=== PATIENT | male | born 1975 | race Caucasian/White ===

== ENCOUNTER 2019-10-06 00:50 | Inpatient (IN) | payer OTHER ==
[2019-10-06] MEDS ORDERED: NALOXONE 0.4 MG/ML 1 ML VIAL IV PRN (00:55)
[2019-10-06] MEDS ORDERED: ONDANSETRON 4 MG/2 ML VIAL IVP PRN (01:06)
[2019-10-06 01:17] LABS: Basophils # (A) 0.1 k/uL (0-0.2); Basophils % (A) 0 %; Eosinophils # (A) 0.1 k/uL (0-0.7); Eosinophils % (A) 1 %; HCT 39.6 % (39.0-53.0); HGB 13.5 gm/dL (13.0-17.5); Lymphocytes # (A) 2.1 k/uL (1.0-4.8); Lymphocytes % (A) 18 %; MCH 30.9 pg (25.0-35.0); MCHC 34.1 g/dL (31.0-37.0); MCV 90.8 fL (80.0-100.0); Mean Platelet Volume 7.8; Monocytes # (A) 0.9 k/uL (0-1.0); Monocytes % (A) 7 %; Neutrophils # (A) 8.8 k/uL (1.3-7.7); Neutrophils % (A) 72 %; Platelet Count 311 k/uL (150-450); RBC 4.36 m/uL (4.30-5.90); RDW 12.7 % (11.5-15.5); WBC 12.2 k/uL (3.8-10.6)
[2019-10-06 01:33] LABS: INR 0.9 (<1.2)
[2019-10-06 01:34] LABS: ALT 30 U/L (4-49); AST 28 U/L (17-59); African American GFR (CKD) >90 (>60 ml/min/1.73 sqM); Albumin 4.1 g/dL (3.5-5.0); Alkaline Phosphatase 76 U/L (38-126); Anion Gap 11 mmol/L; Blood Urea Nitrogen 21 mg/dL (9-20); C Reactive Protein 51.1 mg/L (<10.0); Calcium 9.9 mg/dL (8.4-10.2); Carbon Dioxide 22 mmol/L (22-30); Chloride 105 mmol/L (98-107); Glucose 113 mg/dL (74-99); Non-African American GFR(CKD) >90 (>60 ml/min/1.73 sqM); Potassium 4.2 mmol/L (3.5-5.1); Sodium 138 mmol/L (137-145); Total Bilirubin 0.6 mg/dL (0.2-1.3); Total Protein 7.3 g/dL (6.3-8.2); Uric Acid 4.3 mg/dL (3.5-8.5)
[2019-10-06 01:41] LABS: Partial Thromboplastin Time 20.3 sec (22.0-30.0)
[2019-10-06] MEDS: SODIUM CHLORIDE 0.9% 1,000 ML IV SCH ×3 (01:41→19:42)
[2019-10-06] MEDS: HYDROmorphone 1 MG/ML 1 ML SYRINGE IVP PRN ×4 (01:41→13:24)
[2019-10-06] MEDS: MORPHINE SULFATE 4 MG/ML SYRINGE IV PRN ×5 (02:46→20:25)
--- NOTE | 2019-10-06 02:50 | ED ---
General Adult HPI - General Chief complaint: Extremity Problem,Nontraumatic Stated complaint: Wrist Pain Time Seen by Provider: 10/06/19 00:53 Source: patient, EMS Mode of arrival: EMS Limitations: no limitations - History of Present Illness Initial comments: Jessica is a previously healthy 44-year-old male who presents to the ER as a transfer from an outside hospital for further management of likely septic left wrist. Patient reports he began having pain in the wrist on September 15. He is followed with his primary care physician in [facility], [place]. Pain has acutely worsened over the past few days. He was again evaluated outpatient. He is noted to have an elevated d-dimer and a Doppler of the arm was ordered which revealed no DVTs. However noticed worsening pain and thigh care at an emergency department where previous labs were reviewed and decision made order a computed tomography scan which revealed a loculated fluid collection in the wrist concerning for likely septic arthritis. Patient no history of arthritis and history of injuries to history of open skin injuries. No recent surgeries anywhere in the body.. No history of gout - Related Data Allergies Allergy/AdvReac Type Severity Reaction Status Date / Time No Known Allergies Allergy Verified 10/06/19 01:19 Review of Systems ROS Statement: Those systems with pertinent positive or pertinent negative responses have been documented in the HPI. ROS Other: All systems not noted in ROS Statement are negative. Past Medical History Past Medical History: No Reported History History of Any Multi-Drug Resistant Organisms: None Reported Past Surgical History: No Surgical Hx Reported Past Psychological History: No Psychological Hx Reported Smoking Status: Never smoker Past Alcohol Use History: None Reported, Occasional Past Drug Use History: None Reported General Exam - General Exam Comments Initial Comments: Physical Exam GENERAL: Patient is well-developed and well-nourished. Patient is nontoxic and well-hydrated and is in no distress. HENT: Normocephalic, Atraumatic. EYES: PERRL, EOMI PULMONARY: Unlabored respirations. CARDIOVASCULAR: RRR Warm and well perfused extremities ABDOMEN: Non-distended SKIN: No rashes or bruising : Deferred NEUROLOGIC: Alert and oriented Normal speech Normal gait MUSCULOSKELETAL: left wrist, red, hot, decreased ROM secondary to pain PSYCHIATRIC: No SI/HI Limitations: no limitations Course Vital Signs 10/06/19 00:53 Temperature 98.8 F Pulse Rate 82 Respiratory 18 Rate Blood Pressure 123/66 O2 Sat by Pulse 98 Oximetry Medical Decision Making - Medical Decision Making Patient care was discussed with the transferring physician, patient with apparent septic arthritis identified on computed tomography scan. Patient does have worsening leukocytosis on labs outpatient. Patient was accepted in transfer. Upon arrival patient with pain in the left wrist, overlying erythema and swelling decreased range of motion this is concerning for possible septic arthritis versus gout however given the CT findings of a loculated collection likely septic arthritis. Patient was treated with vancomycin and ceftriaxone prior to arrival. Blood cultures were not obtained at the previous hospital. Repeat labs including blood cultures were obtained here. Patient will be admitted to medicine on-call for phone consult as well as infectious disease on consult. Patient was made nothing by mouth in anticipation of possible orthopedic procedure. - Lab Data Result diagrams: 10/06/19 01:02 10/06/19 01:02 Disposition Clinical Impression: Septic joint of left hand Disposition: ADMITTED IP TO THIS HOSP Condition: Serious Is patient prescribed a controlled substance at d/c from ED?: No
[2019-10-06] MEDS ORDERED: VANCOMYCIN IV PER PHARMACY 1 EACH MISC MISCELLANE PRN (13:42)
[2019-10-06] MEDS: KETOROLAC 30 MG/ML 1 ML VIAL IVP SCH ×2 (15:25→19:39)
--- NOTE | 2019-10-06 15:33 | P.CNOR ---
<Marge Erickson Concha - Last Filed: 10/06/19 15:13> History of Present Illness - [facility] Consult date: 10/06/19 Consult reason: joint pain (Left wrist pain rule out septic arthritis) History of present illness: The patient is a 44-year-old male with a medical history of hypothyroidism, hyperlipidemia, and depression, who presented to the emergency department upon transfer from [facility] last night with left wrist and hand pain and swelling. He states he noticed increased pain in the left wrist approximately 3 weeks ago and went to an urgent care where he was started on oral steroids. He denies any injury or overuse of the hand and wrist. The pain and swelling continued to worsen and he went to the emergency department at [facility]. X-rays, ultrasound, and CT were performed of the left arm and possible septic arthritis was suspected. He was then transferred to [facility] for further evaluation by orthopedic hand surgery. The patient was subsequently admitted to the hospital for further evaluation and pain control. Patient states that his pain is quite severe and is requiring [id number] morphine. The patient denies fever, chills, rigors, and ill feeling since the wrist pain started. White blood cell count in the emergency department yesterday was 12.2, ESR 71, C-reactive protein 51.1, and lactic acid 2.5. The patient previously had vancomycin and another antibiotic at [facility] but has not had antibiotics since. He states he has not had significant improvement since being in the hospital but states the swelling has improved slightly. Review of Systems Constitutional: Denies chills, Denies fatigue, Denies fever Cardiovascular: Denies chest pain, Denies shortness of breath Respiratory: Denies cough Gastrointestinal: Denies abdominal pain, Denies diarrhea, Denies nausea, Denies vomiting Musculoskeletal: left: wrist pain, wrist stiffness, wrist swelling Past Medical History Past Medical History: No Reported History History of Any Multi-Drug Resistant Organisms: None Reported Past Surgical History: No Surgical Hx Reported Past Psychological History: No Psychological Hx Reported Smoking Status: Never smoker Past Alcohol Use History: None Reported, Occasional Past Drug Use History: None Reported Medications and Allergies Home Medications Medication Instructions Recorded Confirmed Type Atorvastatin [Lipitor] 20 mg PO DAILY 10/06/19 10/06/19 History Cholecalciferol [Vitamin D3 (25 3,000 unit PO DAILY 10/06/19 10/06/19 History Mcg = 1000 Iu)] HYDROcodone/APAP 7.5-325MG [Cochran 1 tab PO Q6HR 10/06/19 10/06/19 History 7.5-325] Levothyroxine Sodium [Euthyrox] 88 mcg PO MOWEFR 10/06/19 10/06/19 History Levothyroxine Sodium [Synthroid] 100 mcg PO SUTUTHSA 10/06/19 10/06/19 History Sertraline [Zoloft] 50 mg PO Q48H 10/06/19 10/06/19 History Sertraline [Zoloft] 100 mg PO Q48H 10/06/19 10/06/19 History Allergies Allergy/AdvReac Type Severity Reaction Status Date / Time No Known Allergies Allergy Verified 10/06/19 01:19 Physical Examination The patient is a 44-year-old male who is in no acute distress. He is alert and oriented 3. Exam of the left wrist and hand reveal diffuse swelling to the dorsal aspect of the wrist and hand. There is no proximal red streaking or edema in the forearm. No open wounds or erythema is noted to the wrist or hand. Active and passive range of motion of the fingers are present with mild pain and stiffness. There is active and passive range of motion of the wrist with moderate pain which is limited. There is pain to palpation to the radiocarpal joint and the extensor tendons. No neurological deficits. Circulatory status is intact. Radial pulse strong and capillary refill less than 2 seconds. Results - Labs Labs: Abnormal Lab Results - Last 24 Hours (Table) 10/06/19 10/06/19 10/06/19 Range/Units 01:02 01:02 01:02 WBC 12.2 H (3.8-10.6) k/uL Neutrophils # 8.8 H (1.3-7.7) k/uL ESR (0-15) mm/hr APTT (22.0-30.0) sec BUN 21 H (9-20) mg/dL Glucose 113 H (74-99) mg/dL Plasma Lactic Acid Gallo 2.5 H* (0.7-2.0) mmol/L C-Reactive Protein 51.1 H (<10.0) mg/L 10/06/19 10/06/19 Range/Units 01:02 01:32 WBC (3.8-10.6) k/uL Neutrophils # (1.3-7.7) k/uL ESR 71 H (0-15) mm/hr APTT 20.3 L (22.0-30.0) sec BUN (9-20) mg/dL Glucose (74-99) mg/dL Plasma Lactic Acid Gallo (0.7-2.0) mmol/L C-Reactive Protein (<10.0) mg/L H & H 10/06/19 Range/Units 01:02 Hgb 13.5 (13.0-17.5) gm/dL Hct 39.6 (39.0-53.0) % Coagulation 10/06/19 Range/Units 01:02 INR 0.9 (<1.2) Result Diagrams: 10/06/19 01:02 10/06/19 01:02 - Diagnostic results Wrist/Hand CT: image reviewed (Outside films reviews. Nonspecific fluid collection present. ) Assessment and Plan (1) Left wrist pain Current Visit: Yes Status: Acute Code(s): M25.532 - PAIN IN LEFT WRIST SNOMED Code(s): 22845776 Plan: The clinical and CT findings were discussed with the patient and the patient's family. The case was discussed at length with Dr. Peralta. According to the patient's exam, we clinically doubt septic arthritis at this time. We will start vancomycin and Rocephin as a precaution. We will await infectious disease recommendations. The patient is encouraged to continue range of motion of the fingers actively and passively. Continue pain control. Continue either ice and/or heat. Patient is able to eat today but will be NPO at midnight tonight. It was discussed that the patient fails to improve, a incision and drainage may be needed for further exploration. We will hold off on joint aspiration as well due to the potential to introduce an infection into the joint. We will continue to follow patient closely make further recommendations depending on the patient's course. <Naun Peralta - Last Filed: 10/07/19 22:27> Results - Labs Labs: Abnormal Lab Results - Last 24 Hours (Table) 10/07/19 10/07/19 Range/Units 08:24 08:24 RBC 3.96 L (4.30-5.90) m/uL Hgb 12.2 L (13.0-17.5) gm/dL Hct 37.1 L (39.0-53.0) % Chloride 108 H (98-107) mmol/L BUN 21 H (9-20) mg/dL Microbiology - Last 24 Hours (Table) 10/06/19 01:02 Blood Culture - Preliminary Blood No Growth after 24 hours H & H 10/06/19 10/07/19 Range/Units 01:02 08:24 Hgb 13.5 12.2 L (13.0-17.5) gm/dL Hct 39.6 37.1 L (39.0-53.0) % Coagulation 10/06/19 Range/Units 01:02 INR 0.9 (<1.2) Result Diagrams: 10/07/19 08:24 10/07/19 08:24 Assessment and Plan Plan: Discussed with OLGA Erickson and agree with above. Patient was subsequently seen and examined by myself as well. S: The patient denies previous history of similar episodes. No known history of gout or other inflammatory arthropathy. He feels that the redness and swelling have improved but he still having difficulty moving his fingers. O: Diffuse edema across the dorsum of the hand and wrist, extending into the fingers. No subcutaneous crepitus. No erythema. No significant calor. Minimal tenderness to palpation over the carpus but mild tenderness over the dorsal hand. Almost no pain with passive wrist motion and minimal actively. The patient localizes the pain more to the dorsal hand. He is able to perform active and passive digital flexion and extension. Most of the pain is at the end ranges of motion, particularly in flexion. A: 1. Left hand pain and swelling - likely extensor tenosynovitis P: I discussed the clinical findings in detail with the patient and his family. His exam does not suggest a septic joint. Low suspicion for deep abscess. Based on the appearance and function of the hand, extensor tenosynovitis is more likely. This may be inflammatory/aseptic and not necessarily infectious. We discussed treatment options in detail, including continued observation, symptomatic treatment with warm or cold compresses, IV antibiotics and surgical debridement. He feels that there has been some improvement. I would recommend starting e mpiric IV antibiotics and observing this overnight. If this is clinically worsens, we may consider surgical debridement. Questions were invited and answered. He expressed understanding and was in agreement with this plan. Naun Peralta D.O. [facility]
[2019-10-06] MEDS: VANCOMYCIN 1,500 MG in SODIUM CHLORIDE 0.9% 250 ML IVPB SCH ×2 (16:14→21:01)
--- NOTE | 2019-10-06 17:56 | P.HPIM ---
History of Present Illness Patient is a 44-year-old male came in with the swelling of the left the wrist and hand. Patient pain started 3 weeks ago although it started swelling up quite a bit with severe pain about a week ago patient was diagnosed with osteo- arthritis and was started on oral steroids without any significant improvement patient was sent in here with concerns of septic arthritis CT of the hand was performed which was read as septic arthritis. Artery surgery evaluated the patient I examined the left hand the patient's active and passive movements are not restricted significantly little bit restricted because of pain. Patient has diffuse swelling possibly of septic arthritis is low area did white blood cell count is 12,200 with ESR of 71 C-reactive protein of 51.1 patient was started on vancomycin and ceftriaxone by orthopedic surgery Review of Systems REVIEW OF SYSTEMS: CONSTITUTIONAL: No fever, no malaise, no fatigue. HEENT: No recent visual problems or hearing problems. Denied any sore throat. CARDIOVASCULAR: No chest pain, orthopnea, PND, no palpitations, no syncope. PULMONARY: No shortness of breath, no cough, no hemoptysis. GASTROINTESTINAL: No diarrhea, no nausea, no vomiting, no abdominal pain. NEUROLOGICAL: No headaches, no weakness, no numbness. HEMATOLOGICAL: Denies any bleeding or petechiae. GENITOURINARY: Denies any burning micturition, frequency, or urgency. MUSCULOSKELETAL/RHEUMATOLOGICAL: As mentioned in HPI ENDOCRINE: Denies any polyuria or polydipsia. The rest of the 14-point review of systems is negative. Past Medical History Past Medical History: No Reported History History of Any Multi-Drug Resistant Organisms: None Reported Past Surgical History: No Surgical Hx Reported Past Psychological History: No Psychological Hx Reported Smoking Status: Never smoker Past Alcohol Use History: None Reported, Occasional Past Drug Use History: None Reported Medications and Allergies Home Medications Medication Instructions Recorded Confirmed Type Atorvastatin [Lipitor] 20 mg PO DAILY 10/06/19 10/06/19 History Cholecalciferol [Vitamin D3 (25 3,000 unit PO DAILY 10/06/19 10/06/19 History Mcg = 1000 Iu)] HYDROcodone/APAP 7.5-325MG [Page 1 tab PO Q6HR 10/06/19 10/06/19 History 7.5-325] Levothyroxine Sodium [Euthyrox] 88 mcg PO MOWEFR 10/06/19 10/06/19 History Levothyroxine Sodium [Synthroid] 100 mcg PO SUTUTHSA 10/06/19 10/06/19 History Sertraline [Zoloft] 50 mg PO Q48H 10/06/19 10/06/19 History Sertraline [Zoloft] 100 mg PO Q48H 10/06/19 10/06/19 History Allergies Allergy/AdvReac Type Severity Reaction Status Date / Time No Known Allergies Allergy Verified 10/06/19 01:19 Physical Exam Vitals: Vital Signs Temp Pulse Pulse Resp BP BP Pulse Ox 10/06/19 13:11 98.2 F 64 17 114/68 99 10/06/19 07:00 97.9 F 80 18 135/72 98 10/06/19 02:25 98.8 F 66 20 114/66 97 10/06/19 00:53 98.8 F 82 18 123/66 98 Intake and Output 10/06/19 10/06/19 10/06/19 06:59 14:59 22:59 Intake Total 800 Balance 800 Intake: Intake, IV Titration 800 Amount Sodium Chloride 0.9% 1, 800 000 ml @ 100 mls/hr IV . Q10H REPLACED BY [facility] Rx#:[id number] Other: # Voids 1 Weight 84.368 kg PHYSICAL EXAMINATION: GENERAL: The patient is alert and oriented x3, not in any acute distress. Well developed, well nourished. HEENT: Pupils are round and equally reacting to light. EOMI. No scleral icterus. No conjunctival pallor. Normocephalic, atraumatic. No pharyngeal erythema. No thyromegaly. CARDIOVASCULAR: S1 and S2 present. No murmurs, rubs, or gallops. PULMONARY: Chest is clear to auscultation, no wheezing or crackles. ABDOMEN: Soft, nontender, nondistended, normoactive bowel sounds. No palpable organomegaly. MUSCULOSKELETAL: No joint swelling or deformity. EXTREMITIES: No cyanosis, clubbing, or pedal edema. Patient has diffuse swelling of the left hand there is some limitation of passive and active range of motion because of pain and some stiffness no local is of temperature no obvious joint swelling. NEUROLOGICAL: Gross neurological examination did not reveal any focal deficits. SKIN: No rashes. Results CBC & Chem 7: 10/06/19 01:02 12/27/19 01:02 Labs: Abnormal Lab Results - Last 24 Hours (Table) 10/06/19 10/06/19 10/06/19 Range/Units 01:02 01:02 01:02 WBC 12.2 H (3.8-10.6) k/uL Neutrophils # 8.8 H (1.3-7.7) k/uL ESR (0-15) mm/hr APTT (22.0-30.0) sec BUN 21 H (9-20) mg/dL Glucose 113 H (74-99) mg/dL Plasma Lactic Acid Gallo 2.5 H* (0.7-2.0) mmol/L C-Reactive Protein 51.1 H (<10.0) mg/L 10/06/19 10/06/19 Range/Units 01:02 01:32 WBC (3.8-10.6) k/uL Neutrophils # (1.3-7.7) k/uL ESR 71 H (0-15) mm/hr APTT 20.3 L (22.0-30.0) sec BUN (9-20) mg/dL Glucose (74-99) mg/dL Plasma Lactic Acid Gallo (0.7-2.0) mmol/L C-Reactive Protein (<10.0) mg/L Thrombosis Risk Factor Assmnt - Choose All That Apply Any of the Below Risk Factors Present?: Yes Each Factor Represents 1 point: Age 41-60 years, Obesity (BMI >25) Other Risk Factors: No Other congenital or acquired thrombophilia - If yes, enter type in comment: No Thrombosis Risk Factor Assessment Total Risk Factor Score: 2 Thrombosis Risk Factor Assessment Level: Low Risk Assessment and Plan Plan: 1 left hand swelling and pain: Probably appears to be severe tendinitis low possibility of septic arthritis the patient will be continued on antibiotics for now continue with ice and heat packing patient was started on Toradol. Orthopedic Surgery will try and do incision and drainage if his symptoms doesn't improve. -Hypothyroidism -Hyperlipidemia -Depression For above-mentioned chronic medical problems patient will be resumed and continued on appropriate home medications
[2019-10-06] MEDS ORDERED: SERTRALINE 50 MG TAB PO SCH (18:00)
[2019-10-06] MEDS ORDERED: LEVOTHYROXINE 88 MCG TAB PO SCH (18:00)
[2019-10-06 23:30] VITALS: RESP 18
[2019-10-07] MEDS: KETOROLAC 30 MG/ML 1 ML VIAL IVP SCH ×4 (00:41→17:01)
[2019-10-07] MEDS: VANCOMYCIN 1,500 MG in SODIUM CHLORIDE 0.9% 250 ML IVPB SCH ×2 (05:47→14:49)
[2019-10-07] MEDS: LEVOTHYROXINE 100 MCG TAB PO SCH (05:52)
[2019-10-07] MEDS: MORPHINE SULFATE 4 MG/ML SYRINGE IV PRN ×4 (07:44→22:38)
[2019-10-07] MEDS: ATORVASTATIN 20 MG TAB PO SCH (07:44)
[2019-10-07] MEDS: SODIUM CHLORIDE 0.9% 1,000 ML IV SCH (07:44)
[2019-10-07 08:42] LABS: HCT 37.1 % (39.0-53.0); HGB 12.2 gm/dL (13.0-17.5); MCH 30.7 pg (25.0-35.0); MCHC 32.8 g/dL (31.0-37.0); MCV 93.7 fL (80.0-100.0); Mean Platelet Volume 7.5; Platelet Count 290 k/uL (150-450); RBC 3.96 m/uL (4.30-5.90); RDW 12.8 % (11.5-15.5); WBC 7.5 k/uL (3.8-10.6)
[2019-10-07 09:01] LABS: African American GFR (CKD) >90 (>60 ml/min/1.73 sqM); Anion Gap 8 mmol/L; Blood Urea Nitrogen 21 mg/dL (9-20); Calcium 9.4 mg/dL (8.4-10.2); Carbon Dioxide 22 mmol/L (22-30); Chloride 108 mmol/L (98-107); Glucose 87 mg/dL (74-99); Non-African American GFR(CKD) >90 (>60 ml/min/1.73 sqM); Potassium 4.6 mmol/L (3.5-5.1); Sodium 138 mmol/L (137-145)
--- NOTE | 2019-10-07 12:32 | P.PN ---
<Olga Painter - Last Filed: 10/07/19 12:30> Subjective Progress Note Date: 10/07/19 The patient is a 44-year-old male with a medical history of hypothyroidism, hyperlipidemia, and depression, who presented to the emergency department upon transfer from [facility] 10/05/19 with left wrist and hand pain and s welling. He states he noticed increased pain in the left wrist approximately 3 weeks ago and went to an urgent care where he was started on oral steroids. He denies any injury or overuse of the hand and wrist. The pain and swelling continued to worsen and he went to the emergency department at [facility]. X-rays, ultrasound, and CT were performed of the left arm and possible septic arthritis was suspected. He was then transferred to [facility] for further evaluation by orthopedic hand surgery. White blood cell count in the emergency department 10/05/19 was 12.2, ESR 71, C-reactive protein 51.1, and lactic acid 2.5. The patient was subsequently admitted to the hospital under the care of internal medicine with a consult placed to orthopedic surgery for further evaluation. The patient is currently receiving IV vancomycin and Rocephin. Patient is examined bedside this morning. He states his pain in the left wrist has drastically improved since yesterday. He also has noticed a decrease in swelling. He states he has increased range of motion of the wrist and fingers today. He is otherwise feeling well today. He denies chest pain, shortness breath, nausea, vomiting, fevers, chills, feelings of generalized malaise. Vital signs stable. Objective - Vital Signs Vital signs: Vital Signs Temp 97.8 F 10/07/19 05:00 Pulse 60 10/07/19 05:00 Resp 18 10/07/19 05:00 BP 111/56 10/07/19 05:00 Pulse Ox 94 L 10/07/19 05:00 Intake & Output 10/06/19 10/07/19 10/07/19 18:59 06:59 18:59 Intake Total 980 0 Balance 980 0 Intake: Intake, IV Titration 800 Amount Sodium Chloride 0.9% 1, 800 000 ml @ 100 mls/hr IV . Q10H [facility] Rx#:[id number] Oral 180 0 Other: # Voids 2 # Bowel Movements 0 - Exam Patient is examined bedside. On examination, the patient is lying in bed in no apparent distress. He is alert and oriented 3. Family member is bedside. On examination of the left wrist, there is diffuse swelling to the dorsal aspect of the wrist and hand. There is no significant erythema or proximal red streaking of the hand, wrist, or forearm. There are no open wounds or lacerations to the hand or wrist. There is no pain with active or passive range of motion of the fingers, or wrist. There is minimal pain to palpation of the radial carpal joint and extensor tendons. Motor and sensory function are intact of the left upper extremity. Radial pulse palpable, brisk capillary refill distally. - Labs CBC & Chem 7: 10/07/19 08:24 10/07/19 08:24 Labs: Abnormal Lab Results - Last 24 Hours (Table) 10/07/19 10/07/19 Range/Units 08:24 08:24 RBC 3.96 L (4.30-5.90) m/uL Hgb 12.2 L (13.0-17.5) gm/dL Hct 37.1 L (39.0-53.0) % Chloride 108 H (98-107) mmol/L BUN 21 H (9-20) mg/dL Microbiology - Last 24 Hours (Table) 10/06/19 01:02 Blood Culture - Preliminary Blood No Growth after 24 hours Assessment and Plan Assessment: Left wrist pain, septic arthritis versus gout. Plan: Discussed the clinical findings with the patient and the patient's family. Case was also discussed with Dr. Peralta. The patient's clinical exam does not appear to be consistent with septic arthritis at this time, although we will continue IV antibiotics until we receive recommendations from infectious disease. Continue Toradol for pain control and possible gout. Patient was encouraged to continue range of motion of the fingers. Continue ice and/or heat to the left wrist and hand. We will continue to monitor the patient's clinical course closely and make recommendations as needed. Patient discussed with Dr. Peralta. <Naun Peralta - Last Filed: 10/07/19 22:41> Objective - Vital Signs Vital signs: Vital Signs Temp 97.6 F 10/07/19 17:57 Pulse 64 10/07/19 17:57 Resp 18 10/07/19 17:57 BP 124/72 10/07/19 17:57 Pulse Ox 95 12/28/19 17:57 Intake & Output 10/07/19 10/07/19 10/08/19 06:59 18:59 06:59 Intake Total 0 300 Balance 0 300 Intake: Oral 0 300 Other: # Voids 2 2 # Bowel Movements 0 - Labs CBC & Chem 7: 10/07/19 08:24 10/07/19 08:24 Labs: Abnormal Lab Results - Last 24 Hours (Table) 10/07/19 10/07/19 Range/Units 08:24 08:24 RBC 3.96 L (4.30-5.90) m/uL Hgb 12.2 L (13.0-17.5) gm/dL Hct 37.1 L (39.0-53.0) % Chloride 108 H (98-107) mmol/L BUN 21 H (9-20) mg/dL Microbiology - Last 24 Hours (Table) 10/06/19 01:02 Blood Culture - Preliminary Blood No Growth after 24 hours Assessment and Plan Plan: Reviewed and agree with above (amendments/corrections noted below). Discussed with LETY Painter. The patient was subsequently seen and examined by me as well. S: The patient feels that the hand and wrist are showing continued improvement. After working on his range of motion, it did become more sore. Overall, he feels it is better than when he first arrived. O: The edema in the hand appears marginally improved. The dorsal subcutaneous tissues are diffusely edematous and boggy but there is no discrete fluid carleen ection. No tenderness over the extensor tendons. No pain with mid range active or passive digital flexion and extension. Pain is most intense with the end range of active flexion. No pain with active or passive wrist motion. ~3 cm [id number] deficit of all the fingers. A: Left hand & wrist pain and swelling with extensor tenosynovitis P: I discussed the clinical findings in detail. The patient is showing continued clinical improvement. The appearance of his hand and wrist is more consistent with an inflammatory tenosynovitis. The edema across the hand is diffuse and there is no focal fluid collection that requires operative debridement, especially given his present physical exam. We discussed the risks associated with surgery, including wound healing problems, adhesions and contractures. I would not recommend surgery at this time. Continue elevation. May consider alternating warm and cold compresses. Demonstrated several stretches and range of motion exercises he may perform frequently. I will continue to monitor him closely. If his clinical improvement stalls, or if he worsens, we may revisit the idea of surgical debridement. He expressed understanding and was in agreement to continue as outlined above. Naun Peralta D.O. [facility]
[2019-10-07] MEDS ORDERED: VANCOMYCIN TROUGH DUE 1 EACH MISC MISCELLANE ONE (13:00)
[2019-10-07] MEDS ORDERED: SERTRALINE 100 MG TAB PO SCH (18:00)
--- NOTE | 2019-10-07 20:02 | PN ---
PROGRESS NOTE DATE OF SERVICE: 10/07/2019. This 44-year-old gentleman who was admitted with significant pain and swelling of the left wrist is being closely monitored at this time. The orthopedics is following the patient closely for possible septic arthritis versus gout. Orthopedic surgery is planning pain medications and conservative line of management and IV antibiotics. Infectious disease evaluation also has been sought at this time. The uric acid is only 4.3. Vancomycin level is noted. PAST MEDICAL HISTORY: Reviewed. REVIEW OF SYSTEMS: Cardiovascular system: No angina or palpitations. RESPIRATORY: As mentioned earlier. GASTROINTESTINAL: As mentioned earlier. : No dysuria or retention. CENTRAL NERVOUS SYSTEM: No numbness or weakness. CURRENT MEDICATIONS: 1. Lipitor. 2. Toradol. 3. Synthroid. 4. Morphine sulfate. 5. Zofran. 6. Zoloft. PHYSICAL EXAM: Patient is alert, oriented x3. Pulse is 80. Blood pressure 124/72, respirations 18, temperature 98.5, pulse ox 98% on room air. HEENT: Conjunctivae normal. NECK: No JVD. CARDIOVASCULAR: S1, S2 muffled. RESPIRATIONS: Breath sounds diminished in the bases. No rhonchi. No crackles. ABDOMEN: Soft, nontender. LEGS: No edema. No swelling. CENTRAL NERVOUS SYSTEM: No focal deficits. Examination of the left wrist: Significant pain and swelling of the left wrist joint and whole of the hand also on the left side present. LABS: WBC 7.2, hemoglobin 12.2. Sodium 130, potassium 4.6. ASSESSMENT: 1. Left wrist pain and swelling with possible septic arthritis. 2. Increased WBC. 3. Elevated ESR. 4. Anemia, normocytic anemia, of undetermined etiology. RECOMMENDATIONS AND DISCUSSION: This 44-year-old gentleman who presented with multiple complex medical issues, we will monitor the patient closely, continue the current medications, management and symptomatic treatment. Otherwise, at this time, I recommend continue with broad- spectrum IV antibiotics. Currently the patient is on vancomycin. We will continue to monitor with Infectious Disease. Resume the home medications. Guarded prognosis because of the multiple complex medical issues. Further recommendations to follow. MMODL / IJN: [id number] /
[2019-10-07] MEDS: HEPARIN SODIUM,PORCINE 5,000 UNIT/ML 1 ML VIAL SQ SCH (21:56)
--- NOTE | 2019-10-07 22:56 | P.CONS ---
History of Present Illness - Reason for Consult Consult date: 10/07/19 ? left wrist septic arthritis Requesting physician: Minnie Chery - Chief Complaint left wrist pain and swelling since september 15 - History of Present Illness Patient is a 44-year male who has been transferred from [facility] for management of possible her left wrist septic arthritis apparently the patient still having a problem with his left wrist mostly with the pain and swelling around September 15, 2019 patient did not have any fever at that time or any significant redness patient subsequently has been evaluated in the outpatient setting by his primary care physician and has been treated with a steroids however patient mention no significant improvement with the same subsequently the patient did have blood work done and noticed to have elevated d-dimer and the patient had Doppler of the left lower extremity done to rule out DVT and a CT scan was ordered however the patient was with insurance authorization in the meantime the patient left wrist swelling got worse and it become more painful pain described more predominantly thrombocytopenia (with pain more at movement of the wrist joint there was very minimal swelling redness though no open wound or any drainage patient continues to deny any fever or chills currently debated have a CT of the wrist done at the [facility] which was read for possible fluid collection at the wrist on daily and consult will septic arthritis subsequently the patient has been transferred to [facility] on October 06, 2019 patient has been evaluated by orthopedic services patient was started on Rocephin and vancomycin infectious was consulted today for further recommendation regarding antibiotic therapy. Review of Systems CONSTITUTIONAL: Positive for weakness. Denies fever EYES: No complaint. ENT:No complaint. RESPIRATORY: No complaint. CARDIOVASCULAR: No complaint. GENITOURINARY: No complaint. GASTROINTESTINAL: No complaint. MUSCULOSKELETAL: As per history of present illness. INTEGUMENTARY: As per history of present illness. PSYCHOLOGICAL: No complaint. ENDOCRINE: No complaint. NEUROLOGIC: No complaint. Past Medical History Past Medical History: No Reported History History of Any Multi-Drug Resistant Organisms: None Reported Past Surgical History: No Surgical Hx Reported Past Psychological History: No Psychological Hx Reported Smoking Status: Never smoker Past Alcohol Use History: None Reported, Occasional Past Drug Use History: None Reported Medications and Allergies Home Medications Medication Instructions Recorded Confirmed Type Atorvastatin [Lipitor] 20 mg PO DAILY 10/06/19 10/06/19 History Cholecalciferol [Vitamin D3 (25 3,000 unit PO DAILY 10/06/19 10/06/19 History Mcg = 1000 Iu)] HYDROcodone/APAP 7.5-325MG [King 1 tab PO Q6HR 10/06/19 10/06/19 History 7.5-325] Levothyroxine Sodium [Euthyrox] 88 mcg PO MOWEFR 10/06/19 10/06/19 History Levothyroxine Sodium [Synthroid] 100 mcg PO SUTUTHSA 10/06/19 10/06/19 History Sertraline [Zoloft] 50 mg PO Q48H 10/06/19 10/06/19 History Sertraline [Zoloft] 100 mg PO Q48H 10/06/19 10/06/19 History Allergies Allergy/AdvReac Type Severity Reaction Status Date / Time No Known Allergies Allergy Verified 10/06/19 01:19 Physical Exam Vitals: Vital Signs Temp Pulse Resp BP Pulse Ox 10/07/19 17:57 97.6 F 64 18 124/72 95 10/07/19 12:44 98.5 F 80 18 125/78 99 10/07/19 05:00 97.8 F 60 18 111/56 94 L 10/07/19 00:00 18 Intake and Output 10/07/19 10/07/19 10/07/19 06:59 14:59 22:59 Intake Total 0 300 Balance 0 300 Intake: Oral 0 300 Other: # Voids 2 2 # Bowel Movements 0 GENERAL DESCRIPTION: Middle-aged male lying in bed, no distress. No tachypnea or accessory muscle of respiration use. HEENT: Shows Pallor , no scleral icterus. Oral mucous membrane is dry. No pharyngeal erythema or thrush NECK: Trachea central, no thyromegaly. LUNGS: Unlabored breathing. Clear to auscultation anteriorly. No wheeze or crackle. HEART: S1, S2, regular rate and rhythm. No loud murmur ABDOMEN: Soft, no tenderness , guarding or rigidity, no organomegaly EXTREMITIES: Left wrist and dorsum of the hand noticed to have some swelling currently there is no redness no warmth and no significant tenderness no open wound or any drainage. SKIN: No rash, no masses palpable. NEUROLOGICAL: The patient is awake, alert, oriented x3, mood and affect normal. Results CBC & Chem 7: 10/07/19 08:24 10/07/19 08:24 Labs: Abnormal Lab Results - Last 24 Hours (Table) 10/07/19 10/07/19 Range/Units 08:24 08:24 RBC 3.96 L (4.30-5.90) m/uL Hgb 12.2 L (13.0-17.5) gm/dL Hct 37.1 L (39.0-53.0) % Chloride 108 H (98-107) mmol/L BUN 21 H (9-20) mg/dL Microbiology - Last 24 Hours (Table) 10/06/19 01:02 Blood Culture - Preliminary Blood No Growth after 24 hours Assessment and Plan Assessment: -patient presented to hospital with a left wrist pain ,swelling minimal redness in this patient who did not have any fever no history of any trauma local wound no history of any rigors or chills to be suspicious for bacteremia with abnormal CT done at outside facility which i do not have access to suspicious for septic arthritis though clinically patient is not behaving as a septic arthritis in view of lack of fever in this patient who has not been treated with an antibiotic for almost 3 weeks in case of septic arthritis we should have seen significant worsening locally as well as systemically and even bacteremia which is missing in this patient however even though less likely but not entirely excluded (1) Left wrist pain Current Visit: Yes Status: Acute Code(s): M25.532 - PAIN IN LEFT WRIST SNOMED Code(s): 98036968 Plan: 1-recommend discontinuation of vancomycin as well as Rocephin as we need to esta blish the diagnosis first and to increase the yield of any cultures that need to be done 2-we will recommend left wrist aspirate with the fluid sent for cell count differential and culture 3-we will repeat his CRP and procalcitonin level 4-Case will be discussed in detail with orthopedics awaiting the call back, and will review the CT with radiologist 5-Case was discussed in detail with the who had multiple questions those were answered in layman terms We will follow on clinical condition and cultures to further adjust medication if needed Thank you for this consultation will follow this patient along with you Time with Patient: Greater than 30
[2019-10-08] MEDS: KETOROLAC 30 MG/ML 1 ML VIAL IVP SCH ×3 (00:18→13:23)
[2019-10-08] MEDS: MORPHINE SULFATE 4 MG/ML SYRINGE IV PRN ×2 (03:24→08:50)
[2019-10-08] MEDS: LEVOTHYROXINE 100 MCG TAB PO SCH (05:45)
[2019-10-08] MEDS: ATORVASTATIN 20 MG TAB PO SCH (08:51)
[2019-10-08] MEDS: HEPARIN SODIUM,PORCINE 5,000 UNIT/ML 1 ML VIAL SQ SCH (08:51)
[2019-10-08 09:10] LABS: Basophils % (A) 0 %; Eosinophils # (A) 0.2 k/uL (0-0.7); Eosinophils % (A) 2 %; HCT 36.7 % (39.0-53.0); HGB 12.6 gm/dL (13.0-17.5); Lymphocytes # (A) 1.1 k/uL (1.0-4.8); Lymphocytes % (A) 16 %; MCH 31.4 pg (25.0-35.0); MCHC 34.2 g/dL (31.0-37.0); MCV 91.9 fL (80.0-100.0); Mean Platelet Volume 7.6; Monocytes # (A) 0.3 k/uL (0-1.0); Monocytes % (A) 4 %; Neutrophils # (A) 5.5 k/uL (1.3-7.7); Neutrophils % (A) 76 %; Platelet Count 321 k/uL (150-450); RBC 3.99 m/uL (4.30-5.90); RDW 12.3 % (11.5-15.5); WBC 7.2 k/uL (3.8-10.6)
[2019-10-08 10:30] LABS: African American GFR (CKD) >90 (>60 ml/min/1.73 sqM); Anion Gap 10 mmol/L; Blood Urea Nitrogen 20 mg/dL (9-20); Calcium 9.4 mg/dL (8.4-10.2); Carbon Dioxide 24 mmol/L (22-30); Chloride 101 mmol/L (98-107); Glucose 158 mg/dL (74-99); Non-African American GFR(CKD) >90 (>60 ml/min/1.73 sqM); Potassium 4.5 mmol/L (3.5-5.1); Sodium 135 mmol/L (137-145)
[2019-10-08 10:48] LABS: C Reactive Protein 136.9 mg/L (<10.0)
[2019-10-08 13:41] VITALS: BP 145/74; PULSE 65; TEMP 98
--- NOTE | 2019-10-08 15:21 | P.PN ---
Subjective Progress Note Date: 10/08/19 He states that the pain continues to improve and he feels that the swelling has decreased. He has been performing regular range of motion exercises as instructed. He feels that the hand is better overall. Objective - Vital Signs Vital signs: Vital Signs Temp 98.0 F 10/08/19 13:40 Pulse 65 10/08/19 13:40 Resp 18 10/08/19 13:40 BP 145/74 10/08/19 13:40 Pulse Ox 99 10/08/19 13:40 Intake & Output 10/07/19 10/08/19 10/08/19 18:59 06:59 18:59 Intake Total 300 800 700 Balance 300 800 700 Intake: Oral 300 800 700 Other: # Voids 2 2 1 # Bowel Movements 0 - Exam Noticeable improvement in the edema throughout the hand and fingers. Some wrinkles are returning. The dorsal subcutaneous tissues are still doughy and edematous but nontender to palpation. No pain with active or passive digital motion until the end range of flexion (and pain at the extreme is less than on prior exam). Range of motion has improved, but he still has about a 1 - 1.5 cm [id number] deficit of all the fingers. - Labs CBC & Chem 7: 10/08/19 08:38 10/08/19 08:38 Labs: Abnormal Lab Results - Last 24 Hours (Table) 10/08/19 10/08/19 Range/Units 08:38 08:38 RBC 3.99 L (4.30-5.90) m/uL Hgb 12.6 L (13.0-17.5) gm/dL Hct 36.7 L (39.0-53.0) % Sodium 135 L (137-145) mmol/L Glucose 158 H (74-99) mg/dL C-Reactive Protein 136.9 H (<10.0) mg/L Microbiology - Last 24 Hours (Table) 10/06/19 01:02 Blood Culture - Preliminary Blood No Growth after 48 hours Assessment and Plan Assessment: Left hand/wrist swelling - aseptic/inflammatory extensor tenosynovitis Plan: I discussed the clinical findings in detail with Mr. Frias. The hand continues to show excellent clinical improvement. I encouraged him to continue working on range of motion and additional stretches were demonstrated. I recommended continuing a short outpatient course of regular anti- inflammatories (such as Indocin or etodolac) for another 7-10 days. No further intervention planned at this time. Okay to discharge home from an orthopedic standpoint. Recommended that he follow-up outpatient with me in 7-10 days if the symptoms have not resolved. However, if he shows continued improvement and not having any issues, he may follow-up as needed.
--- NOTE | 2019-10-08 17:08 | PN ---
PROGRESS NOTE DATE OF SERVICE: 10/08/2019. REASON FOR FOLLOWUP VISIT: Left wrist pain and question of septic arthritis. INTERVAL HISTORY: The patient remains to be afebrile. No fever has been recorded the last 3 days the patient has been here. Patient did overall express improvement to the left wrist and dorsum of the hand pain. The patient's swelling almost resolved, currently with no redness. The patient did have movement of the wrist joint without any pain associated with it. No open wound or any drainage. PHYSICAL EXAMINATION: Blood pressure 145/74 with a pulse of 55, temperature of 98. He is 99% on room air. General description is a middle-aged male lying in bed in no distress. Respiratory system: Unlabored breathing. Clear to auscultation anteriorly. Heart S1, S2. Regular rate and rhythm. Abdomen soft, no tenderness. Left hand dorsum minimal swelling. There is no redness, no warmth, no tenderness. The patient did have fairly good movement of his wrist joint. LABS: Hemoglobin is 12.7, white count 7.2 with a BUN of 20, creatinine 0.78. normal 1.9. was elevated. Procalcitonin level is currently pending. Blood culture has been negative. DIAGNOSTIC IMPRESSION AND PLAN: Patient with left wrist and dorsum of the hand pain mostly and swelling in this patient with no fever or any significant redness. Clinical suspicion of underlying septic arthritis. I had a detailed discussion with the orthopedic on the case who was recommending against aspirate of the joint with the fact that he has reviewed his CT and there was no fluid in his left wrist and the clinical suspicion is low for a septic arthritis. This suspicion was more for a tenosynovitis, more likely inflammatory. May benefit from antiinflammatory medication. The patient antibiotic was discussed yesterday and no worsening has been noticed for 24 hours. Recommend keep the patient off antibiotics. Continue with antiinflammatory medications per orthopedics. Continue supportive care. MMODL / IJN: [id number] /
--- NOTE | 2019-10-09 06:42 | DS ---
DISCHARGE SUMMARY DATE OF SERVICE: 10/08/2019 FINAL DIAGNOSES: 1. Left wrist pain and swelling, possibly tendonitis, septic arthritis less likely per Orthopedics. 2. Increased WBC. 3. Elevated ESR and CRP. 4. Anemia, normocytic anemia, undetermined etiology. DISCHARGE DISPOSITION: The patient will be discharged in stable condition with guarded prognosis. Total time taken 35 minutes. Patient is extremely keen on going home. HISTORY OF PRESENT ILLNESS: This 44-year-old gentleman with a past medical history of multiple medical problems admitted with left wrist pain and swelling. The patient was treated symptomatically. The patient improved significantly. A short course of antibiotics were given, but the ESR and cultures are negative. ESR and CRP are elevated. CRP is elevated to 136.9. Rheumatoid factor is pending at this time. At this time, the patient was evaluated by Dr. Mcdaniel and as well as Dr. Peralta and recommend to continue the current medications. Recommend outpatient followup. Dr. Peralta recommended continued treatment and evaluation outpatient setting. No intervention has been performed. On exam, vitals are stable. CARDIOVASCULAR: S1, S2 muffled. ABDOMEN: Soft. NERVOUS SYSTEM: No focal deficits. EXAMINATION OF LEFT WRIST: Swelling present. DISCHARGE ADVICE AND MEDICATIONS: 1. Diet is cardiac. 2. Activity limited until followup. 3. Follow up with Dr. Mauricio Anand in 2 to 3 days. 4. Follow up with Orthopedics and Infectious Disease as mentioned earlier. Medications will be: 1. Levothyroxine 88 mcg p.o. daily. 2. Lipitor 20 mg daily. 3. Adams 7.5 q.6 p.r.n. 4. Synthroid 100 mcg p.o. Wednesday. 5. Vitamin D3, 3000 daily. 6. Zoloft 100 mg q.48 hours and 50 mg q.48 hours. 7. Indocin 25 mg t.i.d. p.r.n. 8. Protonix 40 mg p.o. daily. MMODL / IJN: [id number] /
[2019-10-09 09:51] LABS: Rheumatoid Factor, Qnt 10 IU/mL (0-15)
[2019-10-09 10:36] LABS: Procalcitonin 0.07 ng/mL (0.02-0.09)
[2019-10-10 13:43] LABS: C-ANCA <1:20 Titer (<1:20)
== END 2019-10-08 16:16 | disposition home or self-care (01) | DRG 558 ==
LOC: EC 00:50 → 6NMEDSUR 00:55
PROVIDERS: ADMIT Internal Medicine; ATTEND Internal Medicine
DX: M65.88 Other synovitis and tenosynovitis, other site (principal); D64.9 Anemia, unspecified; E03.9 Hypothyroidism, unspecified; E78.5 Hyperlipidemia, unspecified; F32.9 Major depressive disorder, single episode, unspecified; R79.82 Elevated C-reactive protein (CRP); R70.0 Elevated erythrocyte sedimentation rate; D72.829 Elevated white blood cell count, unspecified; Z79.890 Hormone replacement therapy; Z79.899 Other long term (current) drug therapy
CPT/HCPCS: 36415; 80048; 80053; 80202; 83605; 84145; 84550; 85025; 85027; 85610; 85652; 85730; 86038; 86140; 86255; 86431; 87040; 96374; 96375; 99285